=== PATIENT | male | born 1935 | race Caucasian/White ===

== ENCOUNTER 2021-12-13 06:29 | Day surgery (SDC) | payer MEDICARE, BC ==
[2021-12-13] VITALS (11 sets, daily range): BP systolic 103–132; BP diastolic 53–85
[~2021-12-13] VITALS: Ht 180.3 cm; Wt 84.1 kg
[2021-12-13] MEDS ORDERED: diphenhydrAMINE 25mg capsule PO PRN (07:05)
[2021-12-13] MEDS ORDERED: normal saline 1,000 ML IV SCH (07:05)
[2021-12-13] MEDS ORDERED: [UNRECOGNIZED DRUG - OTHER] (07:19)
[2021-12-13] MEDS ORDERED: PANT-47 PO (07:19)
[2021-12-13] MEDS ORDERED: ATEN50TA PO (07:19)
[2021-12-13] MEDS ORDERED: ATOR40TA PO (07:19)
[2021-12-13] MEDS ORDERED: DABI150C PO (07:19)
[2021-12-13] MEDS ORDERED: OXYC10TA47 PO (07:19)
[2021-12-13] MEDS ORDERED: FINA1TAB17 PO (07:19)
[2021-12-13] MEDS ORDERED: PARO40TA4 PO (07:19)
[2021-12-13] MEDS ORDERED: MAGN400T39 PO (07:19)
[2021-12-13] MEDS ORDERED: LEVO100C4 PEG (07:19)
[2021-12-13] MEDS ORDERED: FERR-119 PO (07:19)
[2021-12-13 07:45] LABS: BASOPHILS % (AUTO) 0.6 % (0-1); EOSINOPHILS # (AUTO) 0.1 X10'3 (0-0.9); EOSINOPHILS % (AUTO) 2.4 % (0-6); LYMPHOCYTES # (AUTO) 1.4 X10'3 (1.1-4.8); LYMPHOCYTES % (AUTO) 27.7 % (21-51); MEAN CORPUSCULAR HEMOGLOBIN 27.9 PG (27.0-31.0); MEAN CORPUSCULAR HGB CONC 32.5 g/dL (33.0-36.5); MEAN CORPUSCULAR VOLUME 86.1 FL (78-98); MEAN PLATELET VOLUME 8.2 FL (7.4-10.4); MONOCYTES # (AUTO) 0.5 X10'3 (0-0.9); MONOCYTES % (AUTO) 10.1 % (2-12); NEUTROPHILS # (AUTO) 3.1 X10'3 (1.8-7.7); NEUTROPHILS % (AUTO) 59.2 % (42-75); PLATELET COUNT 146 X10'3 (140-440); RED BLOOD COUNT 3.95 X10'6 (4.70-6.10); WHITE BLOOD COUNT 5.2 X10'3 (4.5-11.0)
[2021-12-13 07:58] LABS: ANION GAP 9 (8-16); BLOOD UREA NITROGEN 20 MG/DL (7-18); BUN/CREATININE RATIO 15.4 (5.4-32.0); CALCIUM 8.7 MG/DL (8.5-10.1); CHLORIDE 106 MMOL/L (99-107); GLUCOSE 87 MG/DL (70-104); MAGNESIUM 1.6 MG/DL (1.5-2.4); POTASSIUM 3.9 MMOL/L (3.5-5.1); SODIUM 141 MMOL/L (135-145); TOTAL CARBON DIOXIDE 25.9 MMOL/L (24-32); eGFR 53 ML/MIN
[2021-12-13] MEDS ORDERED: nitroGLYCERIN-Tridil 50MG/D5W 250 ML IV ONE (08:38)
[2021-12-13] MEDS ORDERED: iohexol 350MG/ML 100ml bottle IV ONE ×2 (08:39→09:34)
[2021-12-13] MEDS ORDERED: midazolam 1 mg/ML 2ml injection ONE (08:39)
[2021-12-13] MEDS ORDERED: heparin 1,000unit/ml 10ml vial 10 ML ONE (08:39)
[2021-12-13] MEDS ORDERED: LIDOcaine 1% (10mg/ml) 2ml vial ONE (08:39)
[2021-12-13] MEDS ORDERED: verapamil 2.5 mg/ml inj IV ONE (08:39)
[2021-12-13] MEDS ORDERED: fentaNYL/PF 50MCG/1 ML 2ML syringe ONE (08:39)
[2021-12-13] MEDS ORDERED: HYDROcodone/acetaminophen 10/325mg tab PO PRN (11:05)
[2021-12-13] MEDS ORDERED: ondansetron/PF 4mg/2ml inj IV PRN (11:05)
[2021-12-13] MEDS ORDERED: HYDROcodone/acetaminophen 5mg/325mg tablet PO PRN (11:05)
== END 2021-12-13 13:40 | disposition home or self-care (01) ==
LOC: SSTAY O 06:29
PROVIDERS: ATTEND Internal Medicine Cardiovascular Disease
DX: R94.39 Abnormal result of other cardiovascular function study (principal); I48.20 Chronic atrial fibrillation, unspecified; F32.9 Major depressive disorder, single episode, unspecified; E03.9 Hypothyroidism, unspecified; E78.00 Pure hypercholesterolemia, unspecified; Z82.49 Family history of ischemic heart disease and other diseases of the circulatory system; Z79.899 Other long term (current) drug therapy; Z98.890 Other specified postprocedural states
CPT/HCPCS: 36415; 80048; 83735; 85025; 85610; 93005; 93458; 99152; 99153; C1769; C1894; J1644; J2250; J3010; J3490; J7030; Q0163; Q9967; A4620; A5120; A6258; A6402

== ENCOUNTER 2022-09-09 08:16 | Day surgery (SDC) | payer MEDICARE, BC ==
[2022-09-09] VITALS (8 sets, daily range): BP systolic 88–101; BP diastolic 48–63
[~2022-09-09] VITALS: Ht 180.3 cm; Wt 65.0 kg
[~2022-09-09 08:16] MED LIST: ATEN50TA PO; ATOR40TA PO; DABI150C PO; FERR-119 PO; FINA1TAB17 PO; LEVO100C4 PEG; MAGN400T39 PO; OXYC10TA47 PO; PANT-47 PO; PARO40TA4 PO; [UNRECOGNIZED DRUG - OTHER]
[2022-09-09] MEDS ORDERED: cefazolin 2gm/D5W 100mL 100 ML IV ONE (09:09)
[2022-09-09] MEDS ORDERED: vancomycin/NS 1 GM in NS 250 ML IV ONE (09:09)
[2022-09-09] MEDS ORDERED: ATEN50TA PO (09:22)
[2022-09-09] MEDS ORDERED: FINA5TAB11 PO (09:22)
[2022-09-09] MEDS ORDERED: FURO-150 PO (09:22)
[2022-09-09] MEDS ORDERED: MIRT-66 PO (09:22)
[2022-09-09 09:37] LABS: BASOPHILS % (AUTO) 0.7 % (0-1); EOSINOPHILS # (AUTO) 0.1 X10'3 (0-0.9); EOSINOPHILS % (AUTO) 1.3 % (0-6); HEMATOCRIT 35.8 % (42.0-52.0); HEMOGLOBIN 11.6 g/dl (14.0-17.9); LYMPHOCYTES % (AUTO) 16.3 % (21-51); MEAN CORPUSCULAR HEMOGLOBIN 25.7 PG (27.0-31.0); MEAN CORPUSCULAR HGB CONC 32.3 g/dL (33.0-36.5); MEAN CORPUSCULAR VOLUME 79.8 FL (78-98); MEAN PLATELET VOLUME 8.1 FL (7.4-10.4); MONOCYTES # (AUTO) 0.7 X10'3 (0-0.9); MONOCYTES % (AUTO) 10.9 % (2-12); NEUTROPHILS # (AUTO) 4.5 X10'3 (1.8-7.7); NEUTROPHILS % (AUTO) 70.8 % (42-75); PLATELET COUNT 165 X10'3 (140-440); RED BLOOD COUNT 4.49 X10'6 (4.70-6.10); RED CELL DISTRIBUTION WIDTH 17.3 % (11.5-14.5); WHITE BLOOD COUNT 6.3 X10'3 (4.5-11.0)
[2022-09-09 09:52] LABS: ALBUMIN 2.5 G/DL (3.4-5.0); ANION GAP 11 (8-16); BLOOD UREA NITROGEN 44 MG/DL (7-18); BUN/CREATININE RATIO 27.5 (10.0-20.0); CALCIUM 9.5 MG/DL (8.5-10.1); CHLORIDE 102 MMOL/L (99-107); GLUCOSE 103 MG/DL (70-104); MAGNESIUM 1.9 MG/DL (1.5-2.4); POTASSIUM 4.8 MMOL/L (3.5-5.1); SODIUM 138 MMOL/L (135-145); TOTAL CARBON DIOXIDE 25.5 MMOL/L (24-32); eGFR 41 ML/MIN
[2022-09-09] MEDS ORDERED: midazolam 1 mg/ML 2ml injection ONE (10:11)
[2022-09-09] MEDS ORDERED: LIDOCAINE 2%/EPI 1:100,000 inj. Multi-dose 20 ML VIAL ONE (10:11)
[2022-09-09] MEDS ORDERED: fentaNYL/PF 50MCG/1 ML 2ML syringe ONE (10:11)
[2022-09-09] MEDS ORDERED: vancomycin 1,000mg inj ONE (10:11)
[2022-09-09] MEDS ORDERED: normal saline 500ml IV soln 500 ML IV ONE (12:05)
== END 2022-09-09 13:15 | disposition home or self-care (01) ==
LOC: SSTAY O 08:16
PROVIDERS: ATTEND Internal Medicine Cardiovascular Disease
DX: Z45.010 Encounter for checking and testing of cardiac pacemaker pulse generator [battery] (principal); I48.20 Chronic atrial fibrillation, unspecified; C34.92 Malignant neoplasm of unspecified part of left bronchus or lung; E78.00 Pure hypercholesterolemia, unspecified; F32.A Depression, unspecified; E03.9 Hypothyroidism, unspecified; I49.5 Sick sinus syndrome; Z79.01 Long term (current) use of anticoagulants; Z79.899 Other long term (current) drug therapy; Z96.653 Presence of artificial knee joint, bilateral; Z96.611 Presence of right artificial shoulder joint; Z96.612 Presence of left artificial shoulder joint; Z98.890 Other specified postprocedural states; Z87.891 Personal history of nicotine dependence; Z82.49 Family history of ischemic heart disease and other diseases of the circulatory system
CPT/HCPCS: 33228; 36415; 80048; 83735; 85025; 85610; 93005; C1785; J2250; J3010; J3370; J7030; 99152; 99153